=== PATIENT | male | born 1945 | race American Indian/Alaskan Native ===

== ENCOUNTER 2017-11-21 11:44 | Outpatient (CLI) | payer MEDICARE ==
--- NOTE | 2017-11-21 12:19 | XRay Report ---
ROUTINE CHEST, TWO VIEWS: HISTORY: Wheezing, bronchitis. Compared to the report of an exam dated 06/14/12. The images are not available. Mild cardiomegaly and small left pleural effusion are identified on today's exam. The lungs are clear otherwise. No evidence for pneumonia or pneumothorax. The bony structures are grossly intact. IMPRESSION: Mild cardiomegaly and small left pleural effusion. Correlate for early CHF.
== END 2017-11-21 11:45 | disposition home or self-care (01) ==
LOC: XRAY 11:44
PROVIDERS: ATTEND Internal Medicine
DX: J40 Bronchitis, not specified as acute or chronic (principal); I51.7 Cardiomegaly; J90 Pleural effusion, not elsewhere classified
CPT/HCPCS: 71046

== ENCOUNTER 2019-02-22 09:09 | Outpatient (CLI) | payer MEDICARE ==
[2019-02-22 10:30] LABS: Hematocrit 35.3 % (35.5-45.6); Mean Corpuscular HGB Conc 34 % (32-34); Mean Corpuscular Volume 99 fl (84-94); Platelet Count 244 K/mm3 (140-440); Red Blood Count 3.58 M/mm3 (3.65-5.03); Red Cell Distribution Width 16.7 % (13.2-15.2)
[2019-02-22 10:51] LABS: Alanine Aminotransferase 11 units/L (7-56); BUN/Creatinine Ratio 9; Blood Urea Nitrogen 11 mg/dL (9-20); Calcium 8.8 mg/dL (8.4-10.2); Hemolysis Index 2
[2019-02-22 10:58] LABS: Free T4 (Free Thyroxine) 1.27 ng/dL (0.76-1.46)
== END 2019-02-22 09:10 | disposition home or self-care (01) ==
LOC: LAB 09:09
PROVIDERS: ATTEND Internal Medicine
DX: E78.5 Hyperlipidemia, unspecified (principal); E11.9 Type 2 diabetes mellitus without complications; I10 Essential (primary) hypertension; I07.1 Rheumatic tricuspid insufficiency; K92.0 Hematemesis; I44.7 Left bundle-branch block, unspecified; I44.60 Unspecified fascicular block; R94.6 Abnormal results of thyroid function studies; Z79.899 Other long term (current) drug therapy
CPT/HCPCS: 36415; 80053; 84439; 84443; 85027

== ENCOUNTER 2019-06-12 09:17 | Outpatient (CLI) | payer MEDICARE ==
[2019-06-12 11:21] LABS: Chol/HDL Ratio 1.9 %
== END 2019-06-12 09:18 | disposition home or self-care (01) ==
LOC: LAB 09:17
PROVIDERS: ATTEND Internal Medicine
DX: E78.5 Hyperlipidemia, unspecified (principal); E11.9 Type 2 diabetes mellitus without complications; R94.6 Abnormal results of thyroid function studies
CPT/HCPCS: 36415; 80061; 83036; 84443

== ENCOUNTER 2019-10-04 09:26 | Outpatient (CLI) | payer MEDICARE ==
[2019-10-04 12:09] LABS: Chol/HDL Ratio 2.21 %
== END 2019-10-04 09:27 | disposition home or self-care (01) ==
LOC: LAB 09:26
PROVIDERS: ATTEND Internal Medicine
DX: E11.9 Type 2 diabetes mellitus without complications (principal); R94.6 Abnormal results of thyroid function studies
CPT/HCPCS: 36415; 80061; 84443